=== PATIENT | female | born 1970 | race African-American/Black ===

== ENCOUNTER 2019-05-21 17:55 | Emergency (ER) | payer OTHER ==
--- NOTE | 2019-05-21 18:17 | EDM.PDOC ---
ED HPI GENERAL MEDICAL PROBLEM - General Chief Complaint: General Stated Complaint: CHEST PAINS Time Seen by Provider: 05/21/19 18:16 Source of Information: Reports: Patient, RN, RN Notes Reviewed History Limitations: Reports: No Limitations - History of Present Illness INITIAL COMMENTS - FREE TEXT/NARRATIVE: Pt to ER with c/o chest pain. Patient states last week she was diagnosed with bronchitis and was prescribed a Zpack. States she finished the Zpack on Monday. Reports she takes Amlodipine on a daily basis, and has been using Coricidin HBP for cough and congestion. States when she woke up this morning she was having some chest pain, but states she has been coughing a lot. Patient states she went to the clinic. An EKG was done and patient was told that her QT interval was prolonged. He told her she needed to be evaluated in the ER with a troponin. Patient denies any previous heart disease, only HTN. States her father 's side of the family has a history of cardiac disease. States she had a stress test done in September and was told it was normal. Patient denies chest pain, or any pain at the present time. Denies radiation of the chest pain when it was present. Also admits that her children got her very upset last night, and states she feels somewhat anxious today. Onset: Today, Sudden Duration: Intermittent Location: Reports: Chest Chest Pain Score (Numeric/FACES): 1 - Related Data Allergies Allergy/AdvReac Type Severity Reaction Status Date / Time No Known Allergies Allergy Verified 05/21/19 18:03 Home Meds: Home Meds Chlorpheniramine/Dextromethorp [Coricidin Hbp Cough & Cold] 1 cap PO PRN [History] amLODIPine Besylate [Amlodipine Besylate] 10 mg PO DAILY 05/21/19 [History] ED ROS GENERAL - Review of Systems Review Of Systems: ROS reveals no pertinent complaints other than HPI. ED EXAM, GENERAL - Physical Exam Exam: See Below Exam Limited By: No Limitations General Appearance: Alert, WD/WN, No Apparent Distress, Anxious Eye Exam: Bilateral Eye: EOMI, Normal Inspection Ears: Normal External Exam, Hearing Grossly Normal Nose: Normal Inspection Throat/Mouth: Normal Inspection, Normal Voice, No Airway Compromise Head: Atraumatic, Normocephalic Neck: Normal Inspection, Supple, Non-Tender, Full Range of Motion Respiratory/Chest: No Respiratory Distress, Lungs Clear, Normal Breath Sounds, No Accessory Muscle Use, Chest Non-Tender Cardiovascular: Normal Peripheral Pulses, Regular Rate, Rhythm, No Edema, No Gallop, No JVD, No Murmur, No Rub Peripheral Pulses: 2+: Radial (L), Radial (R) GI/Abdominal: Normal Bowel Sounds, Soft, Non-Tender (Female) Exam: Deferred Rectal (Female) Exam: Deferred Back Exam: Normal Inspection, Full Range of Motion, NT Extremities: Normal Inspection, Normal Range of Motion, Non-Tender, Normal Capillary Refill, No Pedal Edema Neurological: Alert, Oriented, CN II-XII Intact, Normal Cognition, Normal Gait, Normal Reflexes, No Motor/Sensory Deficits Psychiatric: Normal Affect, Normal Mood, Anxious Skin Exam: Warm, Dry, Intact, Normal Color, No Rash Lymphatic: No Adenopathy Course - Vital Signs Last Recorded V/S: Last Vital Signs Temp 98.5 F 05/21/19 18:17 Pulse 86 05/21/19 18:17 Resp 18 05/21/19 18:17 BP 159/104 H 05/21/19 18:17 Pulse Ox 99 05/21/19 18:17 - Orders/Labs/Meds Orders: Active Orders 24 hr Category Date Time Status EKG Documentation Completion [RC] STAT Care 05/21/19 18:10 Active Peripheral IV Care [RC] . DIRECTED Care 05/21/19 18:53 Active NS + KCl 20mEq/L [Normal Saline with 20 mEq KCl] 1,000 Med 05/21/19 19:00 Active ml IV ASDIRECTED Sodium Chloride 0.9% [Saline Flush] Med 05/21/19 18:52 Active 10 ml FLUSH ASDIRECTED PRN Peripheral IV Insertion Adult [OM.PC] Stat Oth 05/21/19 18:52 Ordered Medication Orders Potassium Chloride/Sodium Chloride (Normal Saline With 20 Meq Kcl) 1,000 mls @ 500 mls/hr IV ASDIRECTED ABBY Sodium Chloride (Saline Flush) 10 ml FLUSH ASDIRECTED PRN PRN Reason: Keep Vein Open Labs: Laboratory Tests 05/21/19 05/21/19 Range/Units 18:18 18:18 WBC 6.7 (5.0-10.0) 10^3/uL RBC 4.81 (4.2-5.4) 10^6/uL Hgb 13.3 (12.0-16.0) g/dL Hct 39.1 (37.0-47.0) % MCV 81.3 (80-100) fL MCH 27.7 (27.0-34.0) pg MCHC 34.0 (33.0-35.0) g/dL Plt Count 200 (150-450) 10^3/uL Neut % (Auto) 45.3 (42.2-75.2) % Lymph % (Auto) 46.4 (20.5-50.1) % [place] % (Auto) 6.1 (2-8) % Eos % (Auto) 2.1 (1.0-3.0) % Baso % (Auto) 0.1 (0.0-1.0) % Sodium 141 (135-145) mmol/L Potassium 2.8 L (3.6-5.0) mmol/L Chloride 101 (101-111) mmol/L Carbon Dioxide 30.0 (21.0-31.0) mmol/L Anion Gap 12.8 BUN 8 (7-18) mg/dL Creatinine 0.6 (0.6-1.3) mg/dL Est Cr Clr Drug Dosing 104.30 mL/min Estimated GFR (MDRD) > 60 BUN/Creatinine Ratio 13.33 Glucose 113 H (74-105) mg/dL Calcium 9.5 (8.4-10.2) mg/dl Total Bilirubin 0.6 (0.2-1.0) mg/dL AST 21 (10-42) IU/L ALT 20 (10-60) IU/L Alkaline Phosphatase 70 (42-121) IU/L Troponin I < 0.02 (0.00-0.02) ng/ml Total Protein 8.3 H (6.7-8.2) g/dl Albumin 4.8 (3.2-5.5) g/dl Globulin 3.5 Albumin/Globulin Ratio 1.37 Meds: Medications Generic Name Dose Route Start Last Admin Trade Name Freq PRN Reason Stop Dose Admin Potassium Chloride/Sodium Chloride 1,000 mls @ 500 mls/hr 05/21/19 19:00 Normal Saline With 20 Meq Kcl IV ASDIRECTED ABBY Sodium Chloride 10 ml 05/21/19 18:52 Saline Flush FLUSH ASDIRECTED PRN Keep Vein Open Discontinued Medications Generic Name Dose Route Start Last Admin Trade Name Ely PRN Reason Stop Dose Admin Potassium Chloride 40 meq 05/21/19 18:52 05/21/19 19:21 Klor-Con 10 PO 05/21/19 18:53 40 meq ONETIME ONE Administration - Re-Assessments/Exams Free Text/Narrative Re-Assessment/Exam: 05/21/19 19:24 Patient refuses IV potassium chloride. States she will take oral medications. Patient was highly encouraged to have a dose of IV potassium chloride, but refused. Departure - Departure Time of Disposition: 19:25 Disposition: Home, Self-Care 01 Condition: Fair Clinical Impression: Anxiety, Hypokalemia Chest pain Qualifiers: Chest pain type: unspecified Qualified Code(s): R07.9 - Chest pain, unspecified - Discharge Information *PRESCRIPTION DRUG MONITORING PROGRAM REVIEWED*: No *COPY OF PRESCRIPTION DRUG MONITORING REPORT IN PATIENT MATILDE: No Instructions: Chest Wall Pain, [id number], Nonspecific Chest Pain, Easy-to- Read, Hypokalemia, Potassium Content of Foods Forms: ED Department Discharge Additional Instructions: Take potassium chloride as prescribed Follow up in the clinic in 2 days for redraw of potassium level Return to the ER with any further problems - My Orders Last 24 Hours: My Active Orders 05/21/19 18:10 EKG Documentation Completion [RC] STAT 05/21/19 18:52 Sodium Chloride 0.9% [Saline Flush] 10 ml FLUSH ASDIRECTED PRN Peripheral IV Insertion Adult [OM.PC] Stat 05/21/19 18:53 Peripheral IV Care [RC] . DIRECTED 05/21/19 19:00 NS + KCl 20mEq/L [Normal Saline with 20 mEq KCl] 1,000 ml IV ASDIRECTED - Assessment/Plan Last 24 Hours: My Active Orders 05/21/19 18:10 EKG Documentation Completion [RC] STAT 05/21/19 18:52 Sodium Chloride 0.9% [Saline Flush] 10 ml FLUSH ASDIRECTED PRN Peripheral IV Insertion Adult [OM.PC] Stat 05/21/19 18:53 Peripheral IV Care [RC] . DIRECTED 05/21/19 19:00 NS + KCl 20mEq/L [Normal Saline with 20 mEq KCl] 1,000 ml IV ASDIRECTED
[2019-05-21 18:45] LABS: ANION GAP 12.8; CHLORIDE,CL 101 mmol/L (101-111); SODIUM,NA 141 mmol/L (135-145)
[2019-05-21] MEDS ORDERED: Sodium Chloride 0.9% 10 ML Syringe FLUSH PRN (18:52)
[2019-05-21] MEDS ORDERED: Potassium Chloride 10 MEQ Tab.ER PO ONE (18:52)
[2019-05-21] MEDS ORDERED: NS + KCl 20mEq/L 1,000 ML IV SCH (19:00)
== END 2019-05-21 19:39 | disposition home or self-care (01) ==
LOC: EDBD → DL.ED 17:55
DX: R07.9 Chest pain, unspecified (principal); E87.6 Hypokalemia; F41.9 Anxiety disorder, unspecified
CPT/HCPCS: 36415; 80053; 84484; 85025; 93005; 99285; A9270